=== PATIENT | male | born 1960 | race Caucasian/White ===

== ENCOUNTER 2018-11-26 22:58 | Emergency (ER) | payer BC, SELFPAY ==
[2018-11-26 23:00] VITALS: BP 149/87; PULSE 78; RESP 16; TEMP 36.3; O2SAT 95; BMI 32.8
--- NOTE | 2018-11-26 23:39 | RAD_ITS ---
STUDY: X-RAY - CERVICAL SPINE REASON FOR EXAM: Male, 58 years old. garage door fell onto patient's neck TECHNIQUE: 3 view(s) of the cervical spine were obtained. COMPARISON: None FINDINGS: Normal anterior atlantoaxial articulation. Normal odontoid process. Normal cervical lordosis. Normal vertebral bodies and endplates. There is C6-7 degenerative disc disease with disc space narrowing. The soft tissue structures are unremarkable. RAD/Cerv Spine 2 or 3 Views IMPRESSION: There is C6-7 degenerative disc disease with disc space narrowing. Electronically Signed: Kendall Steen, at 0:14 EDT Tel , Service support ,
--- NOTE | 2018-11-26 23:39 | RAD_ITS ---
STUDY: X-RAY - THORACIC SPINE REASON FOR EXAM: Male, 58 years old. garage door fell onto patient's neck TECHNIQUE: 3 view(s) of the thoracic spine were obtained. COMPARISON: None. FINDINGS: Normal kyphosis of the thoracic spine. There is no substantial scoliosis. The soft tissue structures are unremarkable. RAD/Thoracic Spine 2 Views IMPRESSION: There is multilevel endplate spondylosis of the thoracic vertebrae. There is multilevel disc space narrowing of the thoracic spine. Electronically Signed: Kendall Steen, at 0:11 EDT Tel , Service support ,
[2018-11-26] MEDS: Naproxen 500 MG Tablet PO (23:45)
--- NOTE | 2018-11-27 00:23 | ED.VISSUMM ---
- ER Visit Summary Date of Service: 11/27/18 Chief Complaint: Neck and back injury History of Present Illness: The patient is a 58 M who was working on a garage door today when it came down and hit the patient in his upper back. Pain does not radiate to his arms. He has no weakness. He has no paresthesias. Physical Examination: Vital signs unremarkable. Patient sitting in bedside chair in no acute distress. Head neck examination reveals no obvious external sign of trauma. There is no midline C-spine tenderness. She does have tenderness in the lower cervical paraspinals. Back examination reveals tenderness in the upper thoracic midline region. No ecchymosis or abrasions. Heart is regular rate and rhythm. Lung sounds are clear. Neuro exam is normal. Test Results: Cervical and thoracic x-rays are obtained that show degenerative changes but no acute findings. Emergency Department Course and Treatment: Patient was given naproxen here. He did not wish for anything for home. Treatment Plan: [] Disposition: Discharge Impression: Back contusion This note was generated with [employer] dictation software. It may contain incorrect words, spelling, and punctuation that were not noted in review of the chart prior to signing ED Disposition - Plan for ED Patient: Disposition: Home or Assisted Living Instructions: BACK PAIN (Acute or Chronic) Referrals: Yenny Felix, [Primary Care Provider] - 1 Week if not improving
[2018-11-27 00:38] VITALS: BP 132/84; PULSE 67; RESP 18; O2SAT 96
== END 2018-11-27 00:45 | disposition home or self-care (01) ==
PROVIDERS: Emergency Provider Emergency Medicine; Family Provider Internal Medicine; PCP Internal Medicine
DX: S20.229A Contusion of unspecified back wall of thorax, initial encounter (principal); K21.9 Gastro-esophageal reflux disease without esophagitis; G47.33 Obstructive sleep apnea (adult) (pediatric); W20.8XXA Other cause of strike by thrown, projected or falling object, initial encounter; Y93.89 Activity, other specified; Y92.008 Other place in unspecified non-institutional (private) residence as the place of occurrence of the external cause; Y99.8 Other external cause status
CPT/HCPCS: 72040; 72070; 99283

== ENCOUNTER 2021-07-25 16:41 | Emergency (ER) | payer OTHER, SELFPAY ==
[2021-07-25 16:42] VITALS: BP 164/101; PULSE 96; RESP 97; TEMP 37.2; O2SAT 97; BMI 35.0
--- NOTE | 2021-07-25 16:47 | NURSING ---
NO OLD EKGS
--- NOTE | 2021-07-25 16:51 | CT_ITS ---
STUDY: CT BRAIN WITHOUT CONTRAST REASON FOR EXAM: Male, 61 years old. Trauma RADIATION DOSAGE (If Supplied By Facility): CTDIvol = ( 44.99 ) mGy, DLP = ( 812.998 ) mGycm TECHNIQUE: Transaxial CT imaging of the brain was performed without administration of intravenous contrast material. Individualized dose optimization techniques were used for this CT. COMPARISON: No relevant priors. FINDINGS: Mild left frontal scalp injury. Normal calvarium. Normal size ventricles and extra-axial spaces for the patient''s age. Normal white matter tracts of the cerebral hemispheres. Normal basal ganglia and thalami. Normal brainstem. Normal cerebellum. There is no intracranial hemorrhage. There are no findings of an acute ischemic infarction. Mucosal thickening in the paranasal sinuses. CT/Brain/Head without Contrast IMPRESSION: No acute intracranial pathology of the brain. Mild left frontal scalp injury. Electronically Signed: Mason Walker DO at 17:53 EST ,
--- NOTE | 2021-07-25 16:51 | RAD_ITS ---
STUDY: X-RAY - RIGHT WRIST REASON FOR EXAM: Male, 61 years old. PAIN TECHNIQUE: 3 view(s) of the wrist were obtained. COMPARISON: None. FINDINGS: Normal visualized distal radius and ulna. Normal radiocarpal articulation. Normal distal radioulnar articulation. Normal carpal bones. Normal carpal articulations. Normal carpometacarpal articulation of the thumb. Normal second through fifth carpometacarpal articulations. Normal visualized metacarpal bones. The soft tissue structures are unremarkable. RAD/Wrist min 3 Views IMPRESSION: Normal x-ray examination of the wrist. Electronically Signed: Mason Walker DO at 17:58 EST Reading Location ID and State: [facility] / [place] Tel [phone], Service support ,
--- NOTE | 2021-07-25 16:51 | CT_ITS ---
STUDY: CT THORACIC SPINE WITHOUT CONTRAST REASON FOR EXAM: Male, 61 years old. PAIN RADIATION DOSAGE (If Supplied By Facility): CTDIvol = ( 47.96 ) mGy, DLP = ( 1752.81 ) mGycm TECHNIQUE: The patient was scanned in a multi detector CT scanner. High resolution imaging was performed. Images were obtained from T1 to L1. Sagittal and coronal images were reconstructed. Individualized dose optimization techniques were used for this CT. COMPARISON: None. FINDINGS: Normal visualized cervical spine. Normal kyphosis of the thoracic spine. There is no substantial scoliosis. Probable hemangioma at T1 vertebral body. Mild degenerative changes with spurring at the endplates. Normal disc spaces heights. The soft tissue structures are unremarkable. Nonobstructive right renal stone. CT/Spine Thoracic without Contras IMPRESSION: No acute injury of the thoracic spine. Electronically Signed: Mason Walker DO at 18:25 EST ,
--- NOTE | 2021-07-25 16:51 | CT_ITS ---
STUDY: CT CERVICAL SPINE WITHOUT CONTRAST REASON FOR EXAM: Male, 61 years old. Trauma RADIATION DOSAGE (If Supplied By Facility): CTDIvol = ( 24.71 ) mGy, DLP = ( 445.79 ) mGycm TECHNIQUE: High resolution transaxial imaging was performed without contrast material. Sagittal and coronal images were reconstructed. Individualized dose optimization techniques were used for this CT. COMPARISON: None FINDINGS: Normal craniovertebral junction. Normal anterior atlantoaxial articulation. Normal odontoid process. Straightening of the cervical lordosis. Normal vertebral bodies and posterior osseous elements. C2-3: Normal endplates. Normal disc height and morphology. Normal central canal and intervertebral neuroforamina. C3-4: Normal endplates. Normal disc height and morphology. Normal central canal and intervertebral neuroforamina. C4-5: Degenerative spurring at the endplates. Normal disc height and morphology. Normal central canal and intervertebral neuroforamina. C5-6: Degenerative spurring at the endplates. Normal disc height and morphology. Normal central canal. Uncovertebral spurs slightly narrowing the left intervertebral neural foramen. C6-7: Degenerative spurring at the endplates. Narrowed disc height and morphology. Mild posterior spurring protruding into the central canal. Uncovertebral spurring narrowing the intervertebral neuroforamina. C7-T1: Mild spurring at the endplates. Narrowed disc height. Normal central canal. Uncovertebral spurring narrowing the intervertebral neuroforamina. Normal visualized soft tissue structures. CT/Spine Cervical without Contras IMPRESSION: Degenerative changes. No acute bony injury of the cervical spine. Electronically Signed: Mason Walker DO at 18:32 EST Reading Location ID and State: [facility] / [place] Tel [phone], Service support ,
--- NOTE | 2021-07-25 16:51 | CT_ITS ---
STUDY: CT LUMBAR SPINE WITHOUT CONTRAST REASON FOR EXAM: Male, 61 years old. Pain RADIATION DOSAGE (If Supplied By Facility): CTDIvol = ( 44.75 ) mGy, DLP = ( 1322.58 ) mGycm TECHNIQUE: The patient was scanned in a multi detector CT scanner. High resolution transaxial imaging was performed. Images were obtained from L1 to sacrum. Sagittal and coronal images were reconstructed. Individualized dose optimization techniques were used for this CT. COMPARISON: None FINDINGS: Normal lumbar lordosis. There is no substantial scoliosis. Normal vertebrae of the lumbar spine. L1-2: Spurring at the endplates. Normal disc height and morphology. Normal bilateral facet joints. Normal central canal and bilateral lateral recesses. Degenerative spurring narrowing the bilateral intervertebral neural foramina. L2-3: Spurring at the endplates. Normal disc height and morphology. Normal bilateral facet joints. Normal central canal and bilateral lateral recesses. Degenerative spurring narrowing the bilateral intervertebral neural foramina. L3-4: Mild spurring at the endplates. Normal disc height and morphology. Normal bilateral facet joints. Normal central canal and bilateral lateral recesses. Degenerative spurring narrowing the bilateral intervertebral neural foramina. L4-5: Spurring at the endplates. Normal disc height and morphology. Normal bilateral facet joints. Normal central canal and bilateral lateral recesses. Degenerative spurring narrowing the bilateral intervertebral neural foramina. L5-S1: Mild spurring at the endplates. Normal disc height and morphology. Degenerative hypertrophy of the bilateral facet joints. Normal central canal and bilateral lateral recesses. Degenerative spurring slightly narrowing the bilateral intervertebral neural foramina. Normal visualized paraspinous soft tissue structures. CT/Spine Lumbar without Contrast IMPRESSION: Mild degenerative changes. No acute bone injury of the lumbar spine. Electronically Signed: Mason Walker DO at 18:19 [facility] Reading Location ID and State: [facility] / [place] Tel [phone], Service support ,
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
--- NOTE | 2021-07-25 16:53 | NURSING ---
NO OLD EKGS
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
[2021-07-25 17:10] LABS: Absolute Lymphocyte Count 1.94 X10^3/uL (0.83-4.51); Absolute Neutrophil Count 4.7 X10^3/uL (2.0-7.7); Basophil# 0.06 X10^3/uL; Basophil% 0.8 % (0-1); Eosinophil# 0.21 X10^3/uL; Eosinophils% 2.8 % (0-5); Hematocrit 50.5 % (40-54); Hemoglobin 17.6 g/dL (13.0-16.5); Lymphocyte # 1.94 X10^3/ul (0.83-4.51); Lymphocyte % 25.7 % (19-41); Mean Corp Hgb Conc 34.9 g/dL (32-36); Mean Corpuscular Hgb 30.3 pg (27.0-32.0); Mean Corpuscular Volume 86.9 fL (80-94); Mean Platelet Vol. 9.7 fl (6.2-12.0); Monocyte# 0.61 X10^3/uL; Monocyte% 8.1 % (0-10); NRBC Flagged by Analyzer 0 % (0-5); Neutrophil % 62.1 % (47-70); Platelet Count 273 K/mm3 (150-450); RBC Distribution Width CV 13.1 % (11.6-14.6); RBC Distribution Width SD 41.3 fl (35.1-43.9); Red Blood Count 5.81 M/mm3 (4.6-6.2); White Blood Count 7.6 K/mm3 (4.4-11.0)
[2021-07-25 17:22] LABS: Anion Gap 7 (5-15); BUN 15 mg/dL (7-18); BUN/Creat Ratio 13.6 RATIO (10-20); Calcium,Total 9.3 mg/dL (8.5-10.1); Chloride 105 mmol/L (98-107); EST Glomerular Filtration Rate 72 mL/min (>60); Est Glom Filt Rate - Afr Amer 87 mL/min (>60); Glucose 126 mg/dL (74-106); Potassium 3.5 mmol/L (3.5-5.1); Sodium Level 140 mmol/L (136-145)
[2021-07-25 19:37] VITALS: RESP 18; O2SAT 99
[2021-07-25 19:48] LABS: Amphetamine Urine VISTA NEGATIVE (<1000 ng/mL); Barbiturate Urine VISTA NEGATIVE (< 200 ng/mL); Benzodiazepine Urine VISTA NEGATIVE (< 200 ng/mL); Cocaine Urine VISTA NEGATIVE (< 300 ng/mL); Ecstacy Urine VISTA NEGATIVE (< 500 ng/mL); Methadone Urine VISTA NEGATIVE (< 300 ng/mL); PCP Urine VISTA NEGATIVE (< 25 ng/mL); THC Urine VISTA NEGATIVE (< 50 ng/mL); Vista UDS pH Range 6
== END 2021-07-25 19:38 | disposition home or self-care (01) ==
PROVIDERS: Emergency Provider Emergency Medicine; PCP Internal Medicine; Visit Provider Emergency Medicine
DX: S01.81XA Laceration without foreign body of other part of head, initial encounter (principal); S16.1XXA Strain of muscle, fascia and tendon at neck level, initial encounter; E78.00 Pure hypercholesterolemia, unspecified; V43.53XA Car driver injured in collision with pick-up truck in traffic accident, initial encounter; Z79.82 Long term (current) use of aspirin; Z79.899 Other long term (current) drug therapy
CPT/HCPCS: 12011; 70450; 71045; 72125; 72128; 72131; 73110; 80048; 80307; 82077; 85025; 99285; A4216